=== PATIENT | female | born 1955 | race Caucasian/White ===

== ENCOUNTER → 2023-12-05 08:42 | Outpatient (REF) | payer MEDICARE, SELFPAY | LOC: RAD 08:42 | PROVIDERS: ATTENDING PHYSICIAN Nurse Practitioner Family | DX: M79.641 Pain in right hand (principal); M79.642 Pain in left hand; M54.50 Low back pain, unspecified | CPT/HCPCS: 72100; 73120 ==

== ENCOUNTER → 2024-05-01 19:00 | Outpatient (REF) | payer MEDICARE, SELFPAY | LOC: WDC 19:00 | PROVIDERS: ATTENDING PHYSICIAN Nurse Practitioner Family; FAMILY PHYSICIAN Internal Medicine | DX: Z12.31 Encounter for screening mammogram for malignant neoplasm of breast (principal); Z12.39 Encounter for other screening for malignant neoplasm of breast | CPT/HCPCS: 77063; 77067 ==

== ENCOUNTER → 2024-05-08 13:06 | Outpatient (REF) | payer MEDICARE, SELFPAY | LOC: RAD 13:06 | PROVIDERS: ATTENDING PHYSICIAN Nurse Practitioner Family | DX: M25.512 Pain in left shoulder (principal); M25.552 Pain in left hip | CPT/HCPCS: 73030; 73502 ==

== ENCOUNTER → 2024-06-07 10:37 | Outpatient (REF) | payer MEDICARE, SELFPAY | LOC: RCS 10:37 | PROVIDERS: ATTENDING PHYSICIAN Nurse Practitioner Family | DX: R07.9 Chest pain, unspecified (principal) | CPT/HCPCS: 93017; 93350 ==

== ENCOUNTER → 2024-06-11 08:22 | Outpatient (REF) | payer MEDICARE, SELFPAY | LOC: RAD 08:22 | PROVIDERS: ATTENDING PHYSICIAN Nurse Practitioner Family | DX: Z12.39 Encounter for other screening for malignant neoplasm of breast (principal); Z13.820 Encounter for screening for osteoporosis; Z12.31 Encounter for screening mammogram for malignant neoplasm of breast; Z78.0 Asymptomatic menopausal state | CPT/HCPCS: 77080 ==

== ENCOUNTER → 2024-08-13 14:49 | Outpatient (REF) | payer MEDICARE, SELFPAY | LOC: RCS 14:49 | PROVIDERS: ATTENDING PHYSICIAN Internal Medicine Cardiovascular Disease; FAMILY PHYSICIAN Nurse Practitioner Family | DX: R00.2 Palpitations (principal) | CPT/HCPCS: 93306 ==

== ENCOUNTER → 2025-05-07 18:53 | Outpatient (REF) | payer MEDICARE, SELFPAY | LOC: WDC 18:53 | PROVIDERS: ATTENDING PHYSICIAN Nurse Practitioner Family | DX: Z12.31 Encounter for screening mammogram for malignant neoplasm of breast (principal) | CPT/HCPCS: 77063; 77067 ==